=== PATIENT | female | born 1960 | race Hispanic/Latino ===

== ENCOUNTER → 2024-04-29 | Day surgery (SDC) | payer BC ==
[~2024-04-29] VITALS: Ht 152.4 cm; Wt 66.2 kg
[~2024-04-29] MED LIST: BACLOFEN10 MG PO; CIPROFLOXACN500 MG PO; DEPO-MEDROL80 MG/ML IM; FAMOTIDINE 10MG/ML 2ML SDV IV ONE; HYDROCHLOROT25 MG PO; LACTATED RINGER'S 1,000 ML IV ONE; LIDOCAINE HCL 2% 2ML SDV IV ONE; LOVASTATIN20 M1 PO; NAPROSYN500 MG PO; OMEPRAZOLE20 M4 PO; PROPOFOL 200 MG/20 ML VIAL IV ONE; VENTOLIN HFA108 MCG IN
[2024-04-29 08:42] VITALS: BP 134/81
== END | disposition home or self-care (01) | DRG 951 ==
LOC: ENDO 06:47 → ORM 09:10
PROVIDERS: ATTEND Surgery
PROC: 0DBN8ZX Excision of Sigmoid Colon, Via Natural or Artificial Opening Endoscopic, Diagnostic (ICD-10-PCS; principal; 2024-04-29)
DX: Z12.11 Encounter for screening for malignant neoplasm of colon (principal); K63.5 Polyp of colon; K57.30 Diverticulosis of large intestine without perforation or abscess without bleeding; K64.8 Other hemorrhoids; K21.9 Gastro-esophageal reflux disease without esophagitis; Z80.0 Family history of malignant neoplasm of digestive organs